=== PATIENT | female | born 1970 | race Caucasian/White ===

== ENCOUNTER 2024-05-27 06:39 | Day surgery (SDC) | payer BC, SELFPAY ==
[2024-04-09 11:16] VITALS: BMI 32.4
[2024-05-27] VITALS (13 sets, daily range): BP systolic 81–116; BP diastolic 35–78; PULSE 54–84; RESP 8–17; TEMP 36.2–37.1; O2SAT 90–99; BMI 30.9
--- NOTE | 2024-05-27 | PATH_ITS ---
[facility] Accession Number: [id number] No. of containers..01 Tissue . 01 Material submitted: . endometrium - ENDOMETRIAL CURETTINGS AND POLYP . 01 Diagnosis: ENDOMETRIAL CURETTINGS AND POLYP: Disordered proliferative endometrium; negative for endometrioid intraepithelial neoplasia or malignancy. Some endometrial fragments demonstrate prominent vessels, suggestive of polyp, if clinical and imaging studies are concordant. Fragments of myometrium; negative for significant atypia. [facility] 06/02/2024 1644 Local . 01 Electronically signed: . Kendra Graham MD, Pathologist NPI- [id number] . 01 Gross description: . ENDOMETRIAL CURETTINGS AND POLYP: Received in formalin are minute fragments of mucoid and hemorrhagic material measuring 2.0 x 2.0 x 0.2 cm in aggregate. Submitted in toto in 1 cassette. /[facility] 05/31/2024 1723 Local . 01 Pathologist provided ICD-10: N84.1, N95.0 . 01 CPT . 092862 Specimen Comment: A courtesy copy of this report has been sent to [facility] Pathology Performed at: [address] [address], [place], [place] [id number] MD Woody Brooks MD Phone: [phone]
[2024-05-27] MEDS: LACTATED RINGERS 1,000 ML 42 ML IV ×2 (07:09→08:39)
--- NOTE | 2024-05-27 07:34 | P.HPOB_ITS ---
History of Present Illness History of Present Illness Narrative: Kandice Licea is a 54 year old female with postmenopausal bleeding and cervical polyp seen on US. [facility] Medical History Obesity (BMI 30.0-34.9) Prediabetes Surgical History No pertinent past surgical history Social History household members: spouse Smoking Status: Never smoker substance use type: does not use Meds Home Medications and Allergies Home Medications Medication Instructions Recorded Confirmed Type atorvastatin 20 mg tablet 20 mg PO DAILY 03/09/24 05/27/24 History estradiol 0.1 mg/24 hr semiweekly transdermal 03/09/24 03/09/24 History transdermal patch ([place]) progesterone micronized 200 mg 200 mg PO DAILY 03/09/24 05/27/24 History capsule semaglutide 14 mg tablet 14 mg PO DAILY 03/09/24 05/27/24 History Allergies Allergy/AdvReac Type Severity Reaction Status Date / Time No Known Drug Allergies Allergy Verified 05/27/24 06:56 Review of Systems Review of Systems ROS: Yes All systems reviewed with the patient and are negative except as otherwise documented Exam Vital Signs (past 8 hours): - 05/27/24 07:00 Temperature 97.2 F L Pulse Rate 78 Respiratory Rate 16 Blood Pressure 116/78 Pulse Oximetry 96 Oxygen Delivery Method Room Air Oxygen Delivery Method Room Air Const General: healthy appearing, comfortable and No acute distress Resp Effort & Inspection: normal respiratory effort and able to speak in complete sentences Skin General: no rashes or lesions noted Neuro Cognition: normal cognition Speech: speech normal Psych Mood: congruent mood Affect: normal affect Assessment & Plan Assessment and plan (1) Cervical polyp: Status: Acute (2) Postmenopausal bleeding: Status: Acute Assessment & Plan narrative: 54yo F with postmenopausal bleeding and cervical polyp on US, here for planned hysteroscopy, D&C, polypectomy. We reviewed risk/benefit/alternatives to the procedure, and postop expectations. All her questions were answered at this time. -plan for same day surgery -no preop abx indicated -VTE risk low Surgery consent We discussed the risks/benefits/alternatives to the proposed procedure, to include but not limited to: -risk of bleeding, requiring medications, blood products, or other procedures as indicated -risk of infection, requiring prolonged hospital stay or other procedures -risk of injury to other structures, including bowel, bladder, blood vessels, nerves, etc. which may also require additional procedures -risk of adverse reaction to anesthesia or medications -risk of venous thromboembolism and associated sequelae -risk of rare complications such as cardiac arrest, or extremely rarely, Patient is aware of the risks, and desires to proceed with planned surgical procedure. Time-Based Coding :: [20min] spent with patient and on the chart (including review of chart, obtaining history, exam, reviewing outside data, placing orders, documenting exam and treatment plan, and counseling patient) on [05/27/24].
[2024-05-27] MEDS: SCOPOLAMINE 1 PATCH TOP (07:36)
--- NOTE | 2024-05-27 07:55 | SUR.OPER ---
Lithotomy on padded OR bed, head on pillow, arms secured on padded arm boards at <90 degrees abduction. Legs secured in padded yellow fins stirrups.
--- NOTE | 2024-05-27 08:13 | P.OP_ITS ---
Operative Date/Time/Diagnoses Date of procedure: 05/27/24 Time of procedure: 07:45 Pre-op diagnosis: 1. Postmenopausal bleeding 2. Cervical polyp Post-op diagnosis: same Procedure & Clinicians Procedure: Procedures Operation Date: 05/27/24 07:45 Actual Procedure Side Surgeon p Hysteroscopy D&C with polypectomy Shanna Mendiola, DO Indications: 54yo F with postmenopausal bleeding and cervical polyp seen on ultrasound, counseled and consented for diagnostic hysteroscopy with polypectomy and D&C. Surgeon: Shanna Mendiola Anesthesia Type: General Operative Notes Findings: 1-2cm cervical polyp seen in the endocervical canal; normal appearing endometrial cavity with thin endometrial lining; bilateral tubal ostia visualized Specimen(s): endometrial curettings and endometrial polyp Estimated blood loss (mL): 5 Blood products transfused: none Procedure in detail: The risks, benefits, indications and alternatives of the procedure were reviewed with the patient and informed consent was obtained. The pt was taken to the operating room where general anesthesia with LMA was obtained without difficulty. The pt was then placed in the low lithotomy position using gel- padded Mati stirrups. Sequential compression devices were placed bilaterally for VTE prophylaxis. The pt was then prepped and draped in the sterile fashion. A sterile speculum was placed in the patient?s vagina and the cervix was visualized. A single tooth tenaculum was used to grasp the anterior lip of the cervix. The cervix was then gently, dilated to a size 8 Hegar dilator. The operative hysteroscope was first primed and pressure set. The operative hysteroscope was then advanced through the endocervical canal under direct visualization. The uterus was distended with warm saline, and notable for the above findings. The Myosure Lite was then inserted into the operative hysteroscope. Global endometrial sampling was then performed, and the cervical polyp was removed with the Myosure. The operative hysteroscope was then removed under direct visualization. Tissue obtained was sent to pathology for review. The single tooth tenaculum was removed from the anterior lip of the cervix. The tenaculum site was noted to be hemostatic after direct pressure was applied. All instruments were then removed from the patient?s vagina. Hysteroscopic fluid deficit was 140cc of normal saline. The patient tolerated the procedure well. At the completion of the case the sponge and needle counts were correct x 2. The patient was taken to the PACU in stable condition. Complications: none Post-operative Condition: stable Disposition: PACU Plan for aftercare: Discharge to home once meeting PACU discharge criteria.
[2024-05-27] MEDS: OXYCODONE IR 5 MG TABLET PO ×2 (09:13→09:43)
[2024-05-27] MEDS: ACETAMINOPHEN 325 MG TABLET 975 MG PO (09:27)
== END 2024-05-27 10:07 | disposition home or self-care (01) ==
PROVIDERS: PCP Physician Assistant; Referring Provider Student in an Organized Health Care Education/Training Program; Visit Provider Student in an Organized Health Care Education/Training Program
PROC: 0UDB8ZZ Extraction of Endometrium, Via Natural or Artificial Opening Endoscopic (ICD-10-PCS; CPT 58558; principal; 2024-05-27 07:45)
DX: N95.0 Postmenopausal bleeding (principal); N84.1 Polyp of cervix uteri
CPT/HCPCS: 58558; J1100; J2250; J2405; J2704; J3010